=== PATIENT | male | born 1950 | race Caucasian/White ===

== ENCOUNTER 2020-03-14 08:05 | Day surgery (SDC) | payer MEDICARE ==
[2020-03-08 13:07] VITALS: BMI 39.0
--- NOTE | 2020-03-10 20:54 | P.GSHP ---
History of Present Illness H&P Date: 03/10/20 Chief Complaint: Prostate cancer The patient is a 69-year-old white male with no family history of prostate cancer. He was found to have an elevated PSA level of 4.63 in August 2019. The PSA level rell to 5.25 in November 2019. TIESHA revealed the prostate to be a nodular. Prostate ultrasound revealed a prostate volume of 55 mL. 3 of 12 biopsies showed [place] 7 (3+4) adenocarcinoma, all on the right side. The Prolaris score was 6.0. He has chosen to be treated with IMRT and androgen deprivation therapy for 6 months. He has elected to undergo SpaceOAR implant prior to receiving radiation therapy to reduce the likelihood of radiation proctitis. - Cardiovascular Cardiovascular: Reports high blood pressure - Genitourinary (Male) Genitourinary: Reports as per HPI - Musculoskeletal Musculoskeletal: Reports low back pain Past Medical History Past Medical History: Cancer, Hypertension, Osteoarthritis (OA) Additional Past Medical History / Comment(s): PROSTATE CANCER, BACK PAIN, History of Any Multi-Drug Resistant Organisms: None Reported Additional Past Surgical History / Comment(s): LEFT HAND SURGERY, DEVIATED SEPUM REPAIR Past Anesthesia/Blood Transfusion Reactions: No Reported Reaction Smoking Status: Current every day smoker - Past Family History Mother Family Medical History: No Reported History Medications and Allergies Home Medications Medication Instructions Recorded Confirmed Type Calcium Carbonate [Calcium] 600 mg PO DAILY 03/08/20 03/08/20 History Carvedilol [Coreg] 25 mg PO BID 03/08/20 03/08/20 History Cholecalciferol [Vitamin D3 (25 2,000 unit PO DAILY 03/08/20 03/08/20 History Mcg = 1000 Iu)] Hydrocodone/Acetaminophen [[place] 1 tab PO TID 03/08/20 03/08/20 History 10-325] Zinc 50 mg PO DAILY 03/08/20 03/08/20 History hydroCHLOROthiazide [Hydrodiuril] 25 mg PO DAILY 03/08/20 03/08/20 History Allergies Allergy/AdvReac Type Severity Reaction Status Date / Time Penicillins Allergy Rash/Hives Verified 03/08/20 12:36 Surgical - Exam - General well developed, well nourished, no distress - Respiratory normal respiratory effort - Abdomen Abdomen: soft, non tender, no guarding, no rigid, no rebound - Genitourinary normal penis with no external lesions, testicles non-tender - Rectum Rectum: normal sphincter tone, no masses, other (Prostate moderately enlarged with smooth) - Psychiatric oriented to time, oriented to person, oriented to place, speech is normal, memory intact Assessment and Plan (1) Malignant neoplasm of prostate Status: Acute Code(s): C61 - MALIGNANT NEOPLASM OF PROSTATE SNOMED Code(s): 167885855 Plan: The SpaceOar implant has been reviewed in detail with the patient. He understands that the rationale for this is to create separation between the prostate and rectum, thus reducing the risk of radiation proctitis. The material begins to breakdown 12-13 weeks following implant, and is reabsorbed by the body. Risks include anesthesia, bleeding, infection, and perineal discomfort. He understands that if the rectal wall is perforated the procedure will need to be aborted.
[~2020-03-14 08:05] MED LIST: DEXAMETHASONE SOD PHOSPHATE 4 MG/ML 1 ML VIAL IV ONE; HYDROmorphone 0.5 MG/0.5 ML SYRINGE IVP PRN; LACTATED RINGERS 1,000 ML IV SCH; LEVOFLOXACIN 500MG-D5W PMX 500 MG in DEXTROSE/WATER 1 100ML.BAG IVPB PRN; LIDOCAINE 1% (10MG/ML) FOR IV START INTRADERMA PRN; ONDANSETRON 4 MG/2 ML VIAL IVP ONE
[2020-03-14] MEDS ORDERED: PROPOFOL 10 MG/ML 20 ML VIAL IV ONE (09:31)
[2020-03-14] MEDS ORDERED: MIDAZOLAM 2 MG/2 ML VIAL ONE (09:31)
[2020-03-14] MEDS ORDERED: KETAMINE 10 MG/ML 20 ML VIAL ONE (09:31)
[2020-03-14] MEDS ORDERED: LIDOCAINE 1% INJ 10MG/ML (20 ML MDV) ONE (09:31)
[2020-03-14] MEDS ORDERED: fentaNYL (PF) 50 MCG/ML 2 ML AMP ONE (09:31)
[2020-03-14] MEDS ORDERED: LIDOCAINE 2% INJ 20 MG/ML SQ ONE (09:34)
--- NOTE | 2020-03-14 10:05 | P.OP ---
Date of Procedure: 03/14/20 Preoperative Diagnosis: Adenocarcinoma of the prostate Postoperative Diagnosis: Same Procedure(s) Performed: SpaceOAR Implant Anesthesia: MAC Surgeon: Juan Antonio Cloud Estimated Blood Loss (ml): 10 IV fluids (ml): 600 Pathology: none sent Condition: stable Disposition: PACU Indications for Procedure: The patient is a 69-year-old white male with no family history of prostate cancer. He was found to have an elevated PSA level of 4.63 in August 2019. The PSA level rell to 5.25 in November 2019. TIESHA revealed the prostate to be a nodular. Prostate ultrasound revealed a prostate volume of 55 mL. 3 of 12 biopsies showed [place] 7 (3+4) adenocarcinoma, all on the right side. The Prolaris score was 6.0. He has chosen to be treated with IMRT and androgen deprivation therapy for 6 months. He has elected to undergo SpaceOAR implant prior to receiving radiation therapy to reduce the likelihood of radiation proctitis. Operative Findings: 1 cm separation created between prostate and rectum. Description of Procedure: The patient was taken to the operating room and placed in the dorsolithotomy position, with his legs supported in Mukesh stirrups. The external genitalia was prepped and draped sterilely. The Bruel and Kjaer transrectal ultrasound probe was placed intrarectally. The prostate was imaged. The probe was then placed within the stabilizing stand. A spinal needle was advanced under ultrasonic guidance to the level of the urogenital diaphragm, and lidocaine was used to infiltrate the tissues as the needle was withdrawn. Next, the SpaceOAR needle was passed through the midline of the perineum, 1-2 cm anterior to the anal opening. The needle was slowly advanced under ultrasonic guidance until the needle tip was located within the fat plane between the prostate and rectum, at the level of the mid prostate gland. The needle was confirmed to be midline on the axial imaging. A small amount of normal saline was injected for hydrodissection. Next, the SpaceOAR components were mixed and loaded into the Y connector per protocol. The Y connector was then connected to the needle, and the components were injected slowly over a course of approximately 12 seconds. A total of 10 ml was injected. Significant distance was created between the prostate and rectum, as desired. It should be noted that at no point was there any concern of rectal perforation. The needle was withdrawn, as well as the transrectal ultrasound probe, and the procedure was terminated. The patient tolerated the procedure well and was taken to the recovery room in stable condition.
[2020-03-14] MEDS ORDERED: LACTATED RINGERS 1,000 ML IV ONE (10:08)
[2020-03-14 10:18] VITALS: TEMP 97.3
[2020-03-14 11:28] VITALS: BP 122/74; PULSE 78; RESP 18
== END 2020-03-14 11:28 | disposition home or self-care (01) ==
LOC: OR 08:05
PROVIDERS: ATTEND Urology
DX: C61 Malignant neoplasm of prostate (principal); I10 Essential (primary) hypertension; M19.90 Unspecified osteoarthritis, unspecified site; K08.89 Other specified disorders of teeth and supporting structures; F17.200 Nicotine dependence, unspecified, uncomplicated; Z88.0 Allergy status to penicillin; Z98.890 Other specified postprocedural states; Z87.09 Personal history of other diseases of the respiratory system; Z79.899 Other long term (current) drug therapy; Z79.891 Long term (current) use of opiate analgesic
CPT/HCPCS: 55874; J2001 ×2; J2250; J1100; J2405; J1956; J3010; J2704

== ENCOUNTER → 2020-06-19 | Outpatient (CLI) | payer MEDICARE | END | disposition home or self-care (01) | LOC: LABWHC1 11:06 | PROVIDERS: ATTEND Radiology Radiation Oncology | DX: C61 Malignant neoplasm of prostate (principal) | CPT/HCPCS: 36415; 84153 ==

== ENCOUNTER → 2021-04-25 | Outpatient (CLI) | payer MEDICARE | END | disposition home or self-care (01) | LOC: LABWHC1 11:10 | PROVIDERS: ATTEND Radiology Radiation Oncology | DX: C61 Malignant neoplasm of prostate (principal); Z92.3 Personal history of irradiation | CPT/HCPCS: 36415; 84153 ==

== ENCOUNTER → 2021-10-29 | Outpatient (CLI) | payer MEDICARE | END | disposition home or self-care (01) | LOC: LABWHC1 10:21 | PROVIDERS: ATTEND Radiology Radiation Oncology | DX: C61 Malignant neoplasm of prostate (principal); R35.1 Nocturia; Z92.3 Personal history of irradiation | CPT/HCPCS: 36415; 84153 ==

== ENCOUNTER → 2022-11-04 | Outpatient (CLI) | payer MEDICARE | END | disposition home or self-care (01) | LOC: LABWHC1 10:17 | PROVIDERS: ATTEND Radiology Radiation Oncology | DX: Z08 Encounter for follow-up examination after completed treatment for malignant neoplasm (principal); C61 Malignant neoplasm of prostate; Z85.46 Personal history of malignant neoplasm of prostate; Z92.3 Personal history of irradiation; R35.1 Nocturia | CPT/HCPCS: 36415; 84153 ==

== ENCOUNTER → 2023-05-07 | Outpatient (CLI) | payer MEDICARE | END | disposition home or self-care (01) | LOC: LABWHC1 10:03 | PROVIDERS: ATTEND Radiology Radiation Oncology | DX: Z08 Encounter for follow-up examination after completed treatment for malignant neoplasm (principal); C61 Malignant neoplasm of prostate; R35.1 Nocturia; Z92.3 Personal history of irradiation; Z85.46 Personal history of malignant neoplasm of prostate | CPT/HCPCS: 36415; 84153 ==

== ENCOUNTER → 2024-02-04 | Outpatient (CLI) | payer MEDICARE | END | disposition home or self-care (01) | LOC: LABWHC1 10:19 | PROVIDERS: ATTEND Radiology Radiation Oncology | DX: Z08 Encounter for follow-up examination after completed treatment for malignant neoplasm (principal); C61 Malignant neoplasm of prostate; R35.1 Nocturia; Z85.46 Personal history of malignant neoplasm of prostate; Z92.3 Personal history of irradiation | CPT/HCPCS: 36415; 84153 ==